=== PATIENT | male | born 1995 | race Caucasian/White ===

== ENCOUNTER 2018-01-03 07:02 | Day surgery (SDC) | payer OTHER ==
[~2018-01-03 07:02] MED LIST: ceFAZolin 1 gm in NS 1 GM/100 ML BAG IVPB ONE
[2018-01-03] MEDS ORDERED: Morphine 10 mg/5 ml Oral Soln PO PRN (07:46)
[2018-01-03] MEDS ORDERED: Dextrose 5%/0.45% NS 1,000 ML IV SCH (08:00)
[2018-01-03] MEDS ORDERED: HYDROmorphone 0.5 mg/0.5 ml ISec IVP PRN ×2 (08:48→10:54)
[2018-01-03] MEDS ORDERED: Lactated Ringer's 500 ML IV ONE (08:50)
[2018-01-03] MEDS ORDERED: Propofol 10 mg/ml Inj (20 ML) ONE ×2 (08:53→09:05)
[2018-01-03] MEDS ORDERED: Midazolam 2 MG/2 ML VIAL ONE (08:54)
--- NOTE | 2018-01-03 11:25 | OP ---
PROCEDURE DATE: 01/03/2018 PREOPERATIVE DIAGNOSIS: Chronic tonsillitis. POSTOPERATIVE DIAGNOSIS: Chronic tonsillitis. PROCEDURE: Tonsillectomy. SURGEON: Rick Ruiz MD SIGNIFICANT FINDINGS: Chronic infected tonsils. DESCRIPTION OF PROCEDURE: The patient was brought into the room, placed in a supine position. Anesthesia was initiated through an ET tube. The patient was draped in the usual manner. 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 The right tonsil was grabbed and pulled medially. An incision was made in the anterior tonsillar pillar using a . Dissections were done between tonsil and tonsillar fossa using the plasma knife until the tonsil was removed. Bleeding was controlled using plasma knife. Next, the other tonsil was grabbed and pulled medially. Incision was made in the anterior tonsillar pillar using plasma knife. Dissections were done between tonsil and tonsillar fossa using the plasma knife until the tonsil was removed. Bleeding was controlled using plasma knife. Both tonsillar beds were rubbed vigorously with a wand. No bleeding was noted. Mouth gag was let down for 30 seconds, put back up, no bleeding was noted. Mouth gag was then taken down and removed. The patient was taken off anesthesia and taken to the recovery room in a stable manner. Rick Ruiz MD
[2018-01-03 11:52] VITALS: RESP 18
[2018-01-03 13:06] VITALS: BP 119/70; PULSE 82; TEMP 97.8; O2SAT 99
== END 2018-01-03 12:40 | disposition home or self-care (01) ==
LOC: C.SDS 07:02
PROVIDERS: ATTEND Otolaryngology
DX: J35.01 Chronic tonsillitis (principal)
CPT/HCPCS: 42826; 88304; J0690; J1170; J2250; J2704; J3010; J7120